=== PATIENT | male | born 1980 | race Caucasian/White ===

== ENCOUNTER 2019-06-11 14:05 | Emergency (ER) | payer OTHER ==
[~2019-06-11] VITALS: Ht 180.3 cm; Wt 73.9 kg
== END 2019-06-11 18:11 | disposition home or self-care (01) ==
LOC: ER 14:05
DX: S62.623A Displaced fracture of middle phalanx of left middle finger, initial encounter for closed fracture (principal); W01.198A Fall on same level from slipping, tripping and stumbling with subsequent striking against other object, initial encounter; Y93.01 Activity, walking, marching and hiking; Y92.838 Other recreation area as the place of occurrence of the external cause; Y99.8 Other external cause status